=== PATIENT | female | born 1990 | race Caucasian/White ===

== ENCOUNTER 2020-09-30 13:41 | Outpatient (REF) | payer OTHER, SELFPAY ==
[2020-09-30 14:22] LABS: COVID-19 Test Negative (Negative)
== END 2020-09-30 13:42 | disposition home or self-care (01) ==
LOC: HO.EMPCOV 13:41
PROVIDERS: PCP Nurse Practitioner Family; Visit Provider Internal Medicine
DX: Z20.828 Contact with and (suspected) exposure to other viral communicable diseases (principal)
CPT/HCPCS: 87635; C9803

== ENCOUNTER 2020-10-28 10:00 | Outpatient (REF) | payer OTHER, SELFPAY | END 2020-10-28 10:01 | disposition home or self-care (01) | LOC: HO.LAB 10:00 | PROVIDERS: Visit Provider Internal Medicine | DX: Z20.828 Contact with and (suspected) exposure to other viral communicable diseases (principal) | CPT/HCPCS: C9803; U0003 ==